=== PATIENT | female | born 1970 | race American Indian/Alaskan Native ===

== ENCOUNTER 2016-10-05 14:35 | Outpatient (CLI) | payer BC ==
--- NOTE | 2016-10-06 14:46 | Mammography Report ---
BILATERAL DIGITAL SCREENING MAMMOGRAM with CAD: 10/05/16 14:35:00 CLINICAL: Routine screening. COMPARISON:08/19/15 FINDINGS: The breasts are heterogeneously dense, which may obscure small masses. No mass, architectural distortion or suspicious calcifications. IMPRESSION: No mammographic evidence of malignancy. BI-RADS CATEGORY: 1 - - Negative RECOMMENDATION: Routine mammographic screening in one year. COMMENT: Patient follow-up letters are generated by our [employer] application. The
== END 2016-10-05 14:36 | disposition home or self-care (01) ==
LOC: SPVWC 14:35
PROVIDERS: ATTEND Internal Medicine
DX: Z12.31 Encounter for screening mammogram for malignant neoplasm of breast (principal)
CPT/HCPCS: 77067; G0202

== ENCOUNTER 2017-08-30 08:13 | Outpatient (CLI) | payer BC ==
--- NOTE | 2017-08-30 11:43 | Ultrasound Report ---
TRANSABDOMINAL AND TRANSVAGINAL PELVIC ULTRASOUND: 08/30/17 08:13:00 CLINICAL: Left lower quadrant abdominal pain. FINDINGS: Transabdominal and transvaginal pelvic ultrasound demonstrated a normal retroflexed uterus measuring 9.2 x 4.7 x 5.9 cm. Normal uterine contour and echogenicity. No uterine fibroid or mass. The endometrium is normal and measures 2 mm AP thickness. Several tiny echogenic foci in both ovaries. The largest in each ovary measures 2 mm. The right ovary measures 2.3 x 1.2 x 1.6cm. a dominant follicle of the left ovary measures 1 cm. The left ovary measures 3.1 x 1.5 x 1.8cm. No adnexal mass. Minimal free fluid. Normal urinary bladder. IMPRESSION: 1. Normal retroflexed uterus. 2. Probably benign bilateral ovarian calcifications. Recommend six month followup endovaginal ultrasound to evaluate for change in the ovaries.
--- NOTE | 2017-08-30 12:13 | Ultrasound Report ---
ABDOMINAL ULTRASOUND: 08/30/17 08:13:00 CLINICAL: Left lower quadrant abdominal pain. FINDINGS: High-resolution ultrasound demonstrated a normal liver with normal size, contour and echogenicity.. No liver mass. Normal hepatic vasculature and inferior vena cava. Normal gallbladder and bile ducts. The gallbladder wall measures 2 mm thick. The common bile duct measures 3 mm diameter. The pancreas is well imaged and normal. Normal abdominal aorta. A normal spleen measures 8.7cm. Normal kidneys. Physiologic distention of the right renal pelvis. The right kidney measures 10.2 x 4.0 x 4.7cm. The left kidney measures 9.8 x 4.6 x 3.7cm. No renal mass or calculus. No ascites or mass. IMPRESSION: Normal study.
== END 2017-08-30 08:14 | disposition home or self-care (01) ==
LOC: SPVWC 08:13
PROVIDERS: ATTEND Internal Medicine
DX: N85.4 Malposition of uterus (principal); R10.32 Left lower quadrant pain
CPT/HCPCS: 76700; 76830; 76856

== ENCOUNTER 2017-10-04 11:26 | Outpatient (CLI) | payer BC ==
--- NOTE | 2017-10-04 13:43 | Mammography Report ---
Bilateral mammogram: Compared to 10/05/16 and the 08/19/15. CAD study utilized. Findings: Heterogeneous breast parenchyma bilaterally. No microcalcification. Normal axilla. Focal circumscribed density subareolar area left breast outer anterior left breast and lower anterior left breast. 4 mm circumscribed density adjacent to the gel chest wall upper right breast. Impression: Focal circumscribed densities left breast a single circumscribed density right breast. Recommend spot mag and sonographic examination. BI-RADS CATEGORY: 0 = Needs additional imaging evaluation ACR BI-RADS MAMMOGRAPHIC CODES: 0 = Needs additional imaging evaluation; 1 = Negative; 2 = Benign; 3 = Probably benign; 4 = Suspicious; 5 = Malignant; 6 = Known biopsy-proven malignancy COMMENT: 1. Dense breast tissue, i.e., adenosis, fibrocystic changes, etc., may obscure an underlying neoplasm. 2. Approximately 10% of cancers are not detected with mammography. 3. A negative mammography report should not delay biopsy if a clinically suspicious mass is present. COMMENT: Patient follow-up letters are generated in [employer].
== END 2017-10-04 11:27 | disposition home or self-care (01) ==
LOC: SPVWC 11:26
PROVIDERS: ATTEND Internal Medicine
DX: Z12.31 Encounter for screening mammogram for malignant neoplasm of breast (principal)
CPT/HCPCS: 77067

== ENCOUNTER 2017-11-24 15:22 | Outpatient (CLI) | payer BC ==
--- NOTE | 2017-11-24 15:51 | Mammography Report ---
Bilateral mammogram: Call back. CC and lateral compression imaging of both breasts is performed for asymmetry is described on recent screening exam. The additional images fail to confirm any significant findings and the pattern appears unchanged compared to prior exam and 2017. Impression: Stable exam. Recommendation: Annual mammogram followup. BI-RADS CATEGORY: 1 = Negative ACR BI-RADS MAMMOGRAPHIC CODES: 0 = Needs additional imaging evaluation; 1 = Negative; 2 = Benign; 3 = Probably benign; 4 = Suspicious; 5 = Malignant; 6 = Known biopsy-proven malignancy COMMENT: 1. Dense breast tissue, i.e., adenosis, fibrocystic changes, etc., may obscure an underlying neoplasm. 2. Approximately 10% of cancers are not detected with mammography. 3. A negative mammography report should not delay biopsy if a clinically suspicious mass is present.
== END 2017-11-24 15:23 | disposition home or self-care (01) ==
LOC: SPVWC 15:22
PROVIDERS: ATTEND Internal Medicine
DX: R92.8 Other abnormal and inconclusive findings on diagnostic imaging of breast (principal)
CPT/HCPCS: 77066

== ENCOUNTER 2019-04-12 09:50 | Outpatient (CLI) | payer BC ==
--- NOTE | 2019-04-12 13:06 | Mammography Report ---
BILATERAL DIGITAL SCREENING MAMMOGRAM WITH CAD INDICATION: Routine screening mammography. TECHNIQUE: Digital bilateral 2D mammography was obtained in the craniocaudal and mediolateral obliq ue projections. This examination was interpreted with the benefit of Computer-Aided Detection analysi s. COMPARISON: 10/04/2017 and 10/05/2016 FINDINGS: Breast Density: The breasts are heterogeneously dense, which may obscure small masses. No mass, architectural distortion or suspicious calcifications. IMPRESSION:No mammographic evidence of malignancy. BI-RADS Category 1: Negative. No mammographic evidence of malignancy. Recommend routine screening m ammography in one year. A "normal" or negative report should not discourage follow up or biopsy of a clinically significant f inding. A written summary of these findings will be mailed to the patient. The patient will be entered into a mammography reporting system which will generate a reminder letter for the patient's next appointmen t at the appropriate interval. The [employer] recommends yearly mammograms starting at age 40 and continuing as l amanda as a woman is in good health. Breast MRI is recommended for women with an approximate 20-25% or greater lifetime risk of breast cancer, including women with a strong family history of breast or ova mega cancer or who have been treated for Hodgkin's disease. Signer Name: Kwaku Hudson MD Signed: 04/12/2019 1:02 PM Workstation Name: [id number]
== END 2019-04-12 09:51 | disposition home or self-care (01) ==
LOC: SPVWC 09:50
PROVIDERS: ATTEND Internal Medicine
DX: Z12.31 Encounter for screening mammogram for malignant neoplasm of breast (principal)
CPT/HCPCS: 77067